=== PATIENT | male | born 1945 | race Caucasian/White ===

== ENCOUNTER → 2020-01-28 | Outpatient (CLI) | payer OTHER ==
[~2020-01-28] VITALS: Ht 182.9 cm; Wt 77.1 kg
[~2020-01-28] MED LIST: AMBIEN 10 MG TA10 MG PO; LIPITOR10 MG PO; LOSARTAN-HCTZ1 EAC2 PO; NORVASC5 M1 PO
[2020-01-28 09:37] VITALS: BP 178/98
--- NOTE | 2020-01-28 09:57 | NUR ---
Pain Clinic Assessment: 1. History of Osteoarthritis: BACK History of Rheumatoid Arthritis: Not Applicable 2. Height: 6 ft. 0 in. 182.9 cm. Weight: 170.0 lb. oz. 77.112 kg. Patient's BMI: 23.1 3. Vital Signs: BP: 178/98 Pulse: 72 Resp: 14 Temp: 02 Sat: 100 ECG Mon: 4. Pain Intensity: 8 5. Fall Risk: Dizziness: N Needs help standing or walking: N Fallen in the last 3 months: N Fall risk comments: 6. Patient on Blood Thinner: None 7. History of Hypertension: Y 8. Opioid Therapy greater than 6 weeks: N Opiate Contract Signed: 9. Risk Assessment Tool Provided: LOW RISK 0/3 10. Functional Assessment Tool: 56/70 11. Recreational Drug Use: Never Drug Type: Tobacco Use: Never Smoker Tobacco Type: Amount or Packs/day: How Many Years: Alcohol Use: Yes Frequency: Weekly Quant: 3 BEERS
--- NOTE | 2020-02-17 15:38 | HPC ---
[facility] [address] [address] PAIN MANAGEMENT CONSULTATION Name: MAGO FRANCES Room #: REG [facility].#: [id number] Admission: 01/28/20 Attend Phys: Gunner Gonzalez MD Discharge: Date of : 47 Report #: [id number] THIS REPORT FOR: cc: Abelardo Sparks,Gunner Real MD ~ CC: Abelardo Gonzalez DATE OF SERVICE: 01/28/2020 CHIEF COMPLAINT: Low back and leg pain. HISTORY OF PRESENT ILLNESS: The patient is a 75-year-old gentleman who has been experiencing pain in his low back on the right side. It radiates down into his buttocks and involves his right hip. This has been problematic since early December. He describes it as a constant, stabbing pain. It is exacerbated when he is walking and improves when he sits down. He rates the intensity of the discomfort as an 8/10. He notes that the pain sometimes runs down into the right anterior gr area as well. Denies any bowel or bladder dysfunction. He has tried Medrol Dosepak as well as muscle relaxants. He has used hydrocodone. He has tried heat. The patient was walking in [place]. He feels that he may have over extended himself. He has had difficulty doing activities around the house such as mowing lawns, trimming shrubs, and work in his garage. He feels that the pain sometimes almost "hold him over." ALLERGIES: No known drug allergies. MEDICATIONS: 1. Losartan/hydrochlorothiazide 100/12.5 2. Amlodipine 5 mg 3. Lipitor 10 mg 4. ____ p.r.n. PAST MEDICAL HISTORY: 1. Essential hypertension. 2. Mixed hyperlipidemia. 3. Gouty arthritis. 4. Erectile dysfunction. 5. Arthritic knees. 6. Migraine headaches. 7. Malaria in 1967. 8. Squamous cell carcinoma, right angle of the jaw. 9. History of prostate cancer. [facility] [address] [place] [address] PAIN MANAGEMENT CONSULTATION Name: ALYSAMAGO BAY Room #: REG [facility].#: [id number] Admission: 01/28/20 Attend Phys: Gunner Gonzalez MD Discharge: Date of : 46 Report #: [id number] 10. Basal cell cancer. 11. Idiopathic peripheral neuropathy. 12. Urinary urgency. 13. Cervical degenerative disk disease. 14. Hyperkalemia. 15. GERD without esophagitis. 16. Urinary incontinence. 17. Acute right-sided low back pain. PAST SURGICAL HISTORY: 1. Appendectomy in 1984. 2. Vasectomy. 3. Mediastinoscopy 4. Radical prostatectomy in 2014. SOCIAL HISTORY: He is retired, has not worked for the last 10 years. REVIEW OF SYSTEMS: Generally good health, wears glasses, hearing loss, decreased appetite, weight change, insomnia. PAIN CLINIC ASSESSMENT AND PQRS: 1. History of osteoarthritis. The patient has some osteoarthritic complaints in his back. He is not being treated for rheumatoid arthritis. 2. Height 6 feet 0, weight 170 pounds, BMI is 23.1. 3. Vital signs: Blood pressure 178/98, pulse 72, respiratory rate 14, saturation is 100%. 4. Pain intensity: 8/10. 5. Fall history: The patient has not fallen in the last 3 months. 6. Blood thinner: The patient is not on a blood thinning medication. 7. Opioids greater than 6 weeks: The patient is not receiving opioid on a regular basis. 8. Risk assessment tool: Low. 9. Functional assessment tool: 56/ 10. Recreational drug use: The patient denies. 11. Tobacco: The patient has smoked in the past. 12. Alcohol: The patient drinks about 3 beers. PHYSICAL EXAMINATION: GENERAL: The patient is a well-developed, well-nourished, white male. Appears his stated age. He is alert and oriented x 3. His affect is appropriate. Speech is fluent. HEENT: Normocephalic, atraumatic. Extraocular eye muscles intact. Sclerae nonicteric. Mucous membranes are moist. NECK: Without adenopathy or JVD. EXTREMITIES: Upper extremity muscle strength is judged to be 5-/5 for the major muscle groups in the upper extremity. [address] [address] PAIN MANAGEMENT CONSULTATION Name: MAGO FRANCES Room #: REG [facility]#: [id number] Admission: 01/28/20 Attend Phys: Gunner Gonzalez MD Discharge: Date of : 47 Report #: [id number] HEART: Regular rate. LUNGS: Clear to auscultation. ABDOMEN: Nontender. MUSCULOSKELETAL: Without significant scoliosis, kyphosis or lordosis. The patient does have some pain and discomfort in the lower portion of his back. Near the posterior superior iliac spine area, palpation in this area can and has revealed a trigger point. Anterior and posterior spring tests are negative. Gaetano sign is negative. The patient is not having pain radiating down into his dermatomal distribution. IMPRESSION: 1. Myofascial pain in the low back area on the right near the posterior iliac spine and gluteus mazin. 2. Essential hypertension. 3. Mixed hyperlipidemia. 4. Gouty arthritis. 5. Erectile dysfunction. 6. Arthritic knees. 7. Migraine headaches. 8. Malaria in 1968. 9. Squamous cell carcinoma, right angle of the jaw. 10. History of prostate cancer. 11. Basal cell cancer. 12. Idiopathic peripheral neuropathy. 13. Urinary urgency. 14. Cervical degenerative disk disease. 15. Hyperkalemia. 16. GERD without esophagitis. 17. Urinary incontinence. 18. Acute right-sided low back pain. RECOMMENDATIONS: We discussed the treatment options with the patient and his . Risks and benefits of a trigger point injection were discussed. Pathophysiology of trigger points was discussed. We explained that steroid injections can be helpful, the use of steroids can decrease one's immune response. The patient is aware that COVID-19 is pandemic. He elects to proceed. We will proceed with a trigger point injection. The risks and benefits of a trigger point were discussed. They could include but are include but are not limited to infection, worsening of pain, no improvement in pain, nerve damage, bleeding, and the patient elects to proceed. PROCEDURE NOTE: The patient was placed in the appropriate position. He sat perpendicular to the bed. A chair was placed under his feet for support. The patient leaned forward as though he were going to tie his shoes. Palpation in the right posterior superior area did reproduce the patient's pain and discomfort. This area was then sterilely prepped with chlorhexidine solution [address] [address] PAIN MANAGEMENT CONSULTATION Name: MAGO FRANCES Room #: REG [facility]#: [id number] Admission: 01/28/20 Attend Phys: Gunner Gonzalez MD Discharge: Date of : 47 Report #: [id number] and allowed to dry. A 25-gauge needle was then advanced into the area of discomfort. The patient states that this indeed reproduced his discomfort. There was no radicular pain. A total of 10 mL of 0.5% bupivacaine and 80 mg Depo-Medrol was injected. The patient's pain decreased from 8-1 at the time of discharge. He will follow up in the future as needed. We would like to thank you for letting us participate in his care. We hope he continues to improve. <ELECTRONICALLY SIGNED> By: Gunner Gonzalez MD 02/17/20 1538 1317 2330 Gunner Gonzalez MD /nt
== END | disposition home or self-care (01) ==
LOC: PAIN 06:54
PROVIDERS: ATTEND Anesthesiology Pain Medicine
DX: M79.18 Myalgia, other site (principal); I10 Essential (primary) hypertension; E78.2 Mixed hyperlipidemia; M10.9 Gout, unspecified; G43.909 Migraine, unspecified, not intractable, without status migrainosus; K21.9 Gastro-esophageal reflux disease without esophagitis; M17.0 Bilateral primary osteoarthritis of knee; Z85.46 Personal history of malignant neoplasm of prostate; Z85.828 Personal history of other malignant neoplasm of skin; Z98.890 Other specified postprocedural states; Z79.899 Other long term (current) drug therapy; Z90.49 Acquired absence of other specified parts of digestive tract; Z98.52 Vasectomy status

== ENCOUNTER 2020-12-21 13:37 | Observation (INO) | payer OTHER ==
[~2020-12-21] VITALS: Ht 180.3 cm; Wt 65.3 kg
[2020-12-21 13:37] VITALS: BP 107/89
[2020-12-21] MEDS ORDERED: NORVASC10 MG PO (14:20)
[2020-12-21] MEDS ORDERED: ZOLOFT25 MG PO (14:21)
[2020-12-21 14:37] LABS: ABSOLUTE NEUTROPHILS 6.6 thou/uL (1.4-8.2); BASOPHILS 0.5 % (0.0-2.0); EOSINOPHILS 0.2 % (0.0-3.0); HEMATOCRIT 41.4 % (42.0-52.0); HEMOGLOBIN 14.6 gm/dL (14.0-18.0); LYMPHOCYTES 6.6 % (24.0-44.0); MCHC 35.3 g/dL (28.0-37.0); MCV 90.8 fL (80.0-100.0); MONOCYTES 8.1 % (1.0-8.0); PLATELET COUNT 244 thou/uL (150-400); POLYS 84.6 % (36.0-66.0); RBC 4.57 mil/uL (4.50-6.00); RDW 13.4 % (10.5-14.5); WBC 7.8 thou/uL (4.0-11.0)
[2020-12-21 14:41] LABS: ANION GAP 9 mmol/L (7-16); BUN 22 mg/dL (7-18); CALCIUM 9.2 mg/dL (8.5-10.1); CHLORIDE 96 mmol/L (98-107); CO2 28 mmol/L (21-32); CREATININE 1.1 mg/dL (0.7-1.3); GLUCOSE 121 mg/dL (74-106); POTASSIUM 3.6 mmol/L (3.5-5.1); SODIUM 133 mmol/L (136-145)
[2020-12-21 14:51] LABS: ALBUMIN 3.7 g/dL (3.4-5.0); SGOT 20 U/L (15-37); SGPT 27 U/L (16-63); TOTAL PROTEIN 6.8 g/dL (6.4-8.2); TROPONIN-I <0.06 ng/mL (<0.06)
[2020-12-21 15:06] LABS: URINE BILIRUBIN NEGATIVE (Negative); URINE BLOOD NEGATIVE (Negative); URINE CLARITY CLEAR; URINE COLOR YELLOW; URINE GLUCOSE-RANDOM* NEGATIVE (Negative); URINE KETONES NEGATIVE (Negative); URINE LEUKOCYTES-REFLEX NEGATIVE (Negative); URINE NITRITE-REFLEX NEGATIVE (Negative); URINE PROTEIN (DIPSTICK) NEGATIVE (Negative); URINE SPECIFIC GRAVITY 1.025 (1.005-1.035)
--- NOTE | 2020-12-21 15:07 | EKG ---
[place] [address] [facility] [place] [address] ELECTROCARDIOGRAM REPORT Name: MAGO FRANCES Room #: REG [facility]#: [id number] Admission: 12/21/20 Attend Phys: Discharge: Date of : 46 Report #: [id number] [facility] ED Test Date: 2020-12-21 Test Time: 14:02:34 Pat Name: MAGO FRANCES Department: Room: Gender: M Crtts: : 1945 Requested By: Ruby Walker Order Number: [id number] MD: Gaetano Sparrow Measurements Intervals Arco Rate: 79 P: -7 ME: 113 QRS: 46 QRSD: 81 T: 49 QT: 356 QTc: 409 Interpretive Statements Sinus rhythm Borderline short ME interval Baseline wander in lead(s) I,aVR No previous ECG available for comparison Electronically Signed On 12-21-2020 15:07:19 CDT by Gaetano Sparrow [email or web address] <ELECTRONICALLY SIGNED> By: Gaetano Sparrow MD, [facility] 12/21/20 1507 1402 1402 Gaetano Sparrow MD, FACC /EPI
[2020-12-21 16:08] VITALS: BP 107/89
[2020-12-21 16:21] VITALS: BP 169/97
[2020-12-21 17:23] VITALS: BP 156/99
--- NOTE | 2020-12-21 17:41 | NUR ---
ADMISSION NOTE: PT ARRIVED APPROX 1630. PT HAS SMALL BLUE BAG OF PERSONAL TOILETRIES, THIS RN PLACED IN FLORIST HELPER. PT HAS FLAT AFFECT, ANSWERS QUESTIONS IN SHORT SENTENCES, MAKES MULTIPLE STATEMENTS OF "I SHOULD NOT BE IN THE HOSPITAL" PT BOTH DENIES SI AND VERIFIES SI, BUT STATES "I COULD NOT DO THAT TO MY AND SON" PT STATES ALL OF HIS CURRENT DEPRESSION COMES FROM HIS DAUGHTER AND "SOMETHING THAT HAPPENED 20 YEARS AGO" PT HAS LOST 26LBS IN PAST MONTH. USED TO DRINK DAILY, BUT "HAS LOST THE TASTE" 1:1 SITTER IN ROOM. LANDSCAPE SPECIALIST PLACED, SR. VITALS WNL, SKIN INTACT. PT DOES HAVE DIFFICULTY HOLDING URINE SINCE PROSTATECTOMY. DINNER TRAY BEING DELIVERED BY [employer].
[2020-12-22 06:40] VITALS: BP 158/89
--- NOTE | 2020-12-22 06:47 | NUR ---
PT REQUIRES 1:1 DUE TO SI. PT UP TO BATHROOM AD JACKSON AND IV POLE. IVF GTT. HOURLY ROUNDING.
[2020-12-22 07:09] VITALS: BP 154/92
--- NOTE | 2020-12-22 07:44 | NUR ---
ASSUMED PT CARE AT SHIFT CHANGE, 1:1 SITTER IN ROOM. NO COMPLAINTS OF PAIN OR DISCOMFORT. NO OTHER CONCERNS AT THIS TIME. PHYSICIANS ROUNDING.
--- NOTE | 2020-12-22 08:08 | H ---
[facility] [place] [address] [place] [address] HISTORY AND PHYSICAL Name: MAGO FRANCES Room #: 350-P [facility] M.R.#: [id number] Admission: 12/21/20 Attend Phys: Abelardo Sparks DO Discharge: Date of : 47 Report #: [id number] THIS REPORT FOR: cc: Abelardo Sparks,Abelardo Prasad DO ~ DOC #: [id number] Abelardo Sparks DO DATE OF SERVICE: 12/21/2020 ROOM: 350 HISTORY OF PRESENT ILLNESS: This 75-year-old white male was admitted through the emergency room with significant weight loss, anorexia, hallucinations, paranoia, confusion and anxiety. The patient's history began on 11/03/2020 when his daughter, under the influence of narcotics, accused him of having tried to have sex with her several years ago. He denied this, but the accusation made him extremely stressed out and he has been going downhill since then. He was hospitalized last month at [facility] with hyponatremia, following which losartan was discontinued. He was in the emergency room last week because of refusal to eat; however, lab studies were unremarkable and he was sent home. I was out of town at that time and not able to help coordinate his care. Today, his called me to tell me that he was hallucinating, being paranoid, thinking that they were going to accuse him being a terrorist and were about to arrest him, thinking they were going to charge him for owning firearms in his home, and somehow thinking he was going to hurt himself. This scared the and she brought him into my office where he was found to be drawn and had significant weight loss. The patient was not thinking clearly and was very paranoid and stating he felt guilty about what he had done to make his daughter make the accusations. He also admitted that years ago he shoplifted $50 item from [employer] for which they told him never to return; however, they have shopped there many times since then. PAST MEDICAL HISTORY: Prostate cancer, treated with radical prostatectomy; appendectomy; vasectomy; mediastinoscopy; hypertension; mixed hyperlipidemia; gout; arthritis of the knee; migraine headaches; malaria in 1967; squamous cell cancer at the right angle of his jaw; idiopathic peripheral neuropathy; cervical degenerative disk disease; GERD without esophagitis; urinary incontinence following his prostatectomy. MEDICATIONS ON ADMISSION: Lipitor 20 mg daily, zolpidem ER 12.5 mg nightly, [address] [address] HISTORY AND PHYSICAL Name: MAGO FRANCES Room #: 350-P [facility] M.R.#: [id number] Admission: 12/21/20 Attend Phys: Abelardo Sparks DO Discharge: Date of : 47 Report #: [id number] amlodipine 10 mg daily. ALLERGIES: None, but SERTRALINE 1 week ago made his condition worse, which has been discontinued. SYSTEMS REVIEW: Lives with his for many years. No cigarettes. He usually drinks 1 beer or 1 vodka nightly, but has lost his appetite for that. Usually he does all the yard work, but for the last month has been unwilling to do any. Denies chest pain, fever, chills, cough, dysphagia, falls, head trauma or melena. PHYSICAL EXAMINATION: GENERAL: Tanned ____ white male with flattened affect. VITAL SIGNS: Blood pressure 156/99, pulse 86, respirations 18, temperature afebrile. HEAD: No rash or trauma. EARS, NOSE AND THROAT: Mucosa is dry. EYES: No icterus. NECK: Supple, without bruits. No adenopathy. LUNGS: Clear. Cough is dry. HEART: Rhythm regular, without murmur. ABDOMEN: Soft, without masses, tenderness or organomegaly. EXTREMITIES: No edema, cyanosis or rash or sign of trauma. NEUROLOGIC: He does not make good eye contact. His affect is very flat. His mood is depressed. His word content is accurate; however, he mutters that this all his fault that he is guilty and should be punished. He currently denies any suicidal ideation. IMAGING AND LABORATORY DATA: CAT scan of the abdomen and chest showed small pulmonary nodules. Chest x-ray is negative. CAT scan of the head shows no acute abnormality. White count 7800, hemoglobin 14.6, MCV 90.8. Serum alcohol less than 10. Salicylate and acetaminophen are negative. Sodium 133, potassium 3.6, CO2 of 18, BUN 22, creatinine 1.1, estimated GFR 65, glucose 121, calcium 9.2. Liver enzymes normal. Albumin normal at 3.7. IMPRESSION: 1. Weight loss and anorexia. 2. Hallucinations and paranoia. 3. Possible posttraumatic stress disorder. 4. Rule out dementia versus pseudodementia from depression. 5. History of prostate cancer. 6. Hypertension. 7. History of hyperlipidemia. 8. Cervical degenerative arthritis. [facility] [address] [place] [address] HISTORY AND PHYSICAL Name: MAGO FRANCES Room #: 350-P [facility] Afshan Avalos#: [id number] Admission: 12/21/20 Attend Phys: Abelardo Sparks DO Discharge: Date of : 47 Report #: [id number] PLAN: IV fluids and hydration, consult Psychiatry, a 1:1 sitter ____ the patient definitely will not try to hurt himself. Prognosis is guarded. Abelardo Sparks DO DC/DAVID/MARIAA <ELECTRONICALLY SIGNED> By: Abelardo Sparks DO 12/22/20 0808 1632 1754 Abelardo Sparks DO /nt
[2020-12-22] MEDS ORDERED: B-12500 MCG PO (08:10)
[2020-12-22 09:04] VITALS: BP 154/92
--- NOTE | 2020-12-22 14:24 | NUR ---
THIS RN REC'D PHONE CALL FROM DR CANALES, IS OK TO DC PT TO [facility], COVID TEST NEGATIVE. REPORT GIVEN TO FLOOR RN WITH COORDINATED TIME TO TRANSFER.
--- NOTE | 2020-12-24 07:20 | D ---
[facility] [place] [address] [place] [address] DISCHARGE SUMMARY Name: MAGO FRANCES Room #: 350-P [facility] Afshan Avalos#: [id number] Admission: 12/21/20 Attend Phys: Abelardo Sparks DO Discharge: 12/22/20 Date of : 47 Report #: [id number] THIS REPORT FOR: cc: Abelardo Sparks,Abelardo Prasad DO ~ DOC #: [id number] Abelardo Sparks DO DATE OF SERVICE: 12/22/2020 HISTORY: This 75-year-old white male was admitted with weight loss, anorexia, paranoia, hallucinations, feelings of guilt and anxiety. The patient had been progressively worsening since October when his daughter accused him of trying to have sex with her, which he adamantly denied; however, the daughter was addicted to drugs at that time and has had severe mental problems herself. His other history includes prostate cancer, hypertension, degenerative arthritis of his neck, radical prostatectomy for prostate cancer, appendectomy, vasectomy, mixed hyperlipidemia, malaria in 1967, arthritis of the knees, squamous cell cancer to the angle of his right jaw, GERD without esophagitis and urinary incontinence following his prostatectomy. HOSPITAL COURSE: Initial physical revealed a somewhat disheveled, drawn suntanned white male. The patient did have had COVID last winter. BP was high at 156/99. Other vitals were stable. Head and neck revealed dry mucosa. Lungs are clear. Cardiac exam negative. The abdomen is soft, nontender. Extremities had no cyanosis, clubbing, edema or signs of trauma. Neurologic: He was alert and oriented, but withdrawn and depressed. CAT scan of abdomen and pelvis was done for weight loss, showed small pulmonary nodules. Chest x-ray negative. CAT scan of the head negative. Drug screen was negative. The patient was admitted, seen in consult by Dr. Ramirez of Psychiatry. He received IV fluids. His affect remained flat and anxious. Dr. Ramirez thought he was an appropriate candidate for inpatient psychiatric care. CBC and CMP were unremarkable. B12 level was normal. On 12/21/2020, he was transferred to [facility] here on amlodipine 10 mg daily, Seroquel 25 mg b.i.d., and atorvastatin 20 mg daily. FINAL DIAGNOSES: 1. Anorexia and weight loss secondary to acute psychotic break with depression and posttraumatic stress disorder. 2. Hypertension. 3. Cervical degenerative arthritis. 4. Mixed hyperlipidemia. 5. History of prostate cancer. Abelardo Sparks DO DC/ASHOK/THIAGO [address] [address] DISCHARGE SUMMARY Name: MAGO FRANCES Room #: 350-P [facility] Afshan Avalos#: [id number] Admission: 12/21/20 Attend Phys: Abelardo Sparks DO Discharge: 12/22/20 Date of : 47 Report #: [id number] <ELECTRONICALLY SIGNED> By: Abelardo Sparks DO 12/24/20719 0643 Abelardo Sparks DO /nt
--- NOTE | 2020-12-24 22:33 | HC ---
[facility] [place] [address] CONSULTATION Name: MAGO FRANCES Room #: 350-P [facility] Afshan M.R.#: [id number] Admission: 12/21/20 Attend Phys: Abelardo Sparks DO Discharge: 12/22/20 Date of : 47 Report #: [id number] THIS REPORT FOR: cc: Abelardo Sparks Donald L. DO Kerstein, Andrew H. DO ~ DOC #: [id number] ROSS Ramirez, DATE OF SERVICE: 12/21/2020 PSYCHIATRY CL CONSULTATION Of note, I was called to the Emergency Room by Dr. Walker to see the patient of Dr. Abelardo Sparks, sent to the Emergency Room for evaluation and probable admission. While at the Emergency Room, Dr. Sparks was called and he did want to admit the patient medically. SOURCES OF INFORMATION: Conversation and notes of Dr. Sparks, discussion with Dr. Walker about the case, Emergency Room and hospital records, interview with the patient in ER bed 10, some brief collateral I got from his . CHIEF COMPLAINT: "It is over." HISTORY OF PRESENT ILLNESS: This is a 75-year-old male, referred to the Emergency Room at [facility] for initial evaluation today. The patient was reported to have suicidal ideation, did not flush out of him a fixed plan. He had very morbid, almost fatalistic thinking in the ER that it is all over. Collateral states that he has had significant weight loss over the last few months, hallucinations, probably auditory, been paranoid, confused and anxious. According to Dr. Sparks's note on 11/03/2020, things deteriorated when his daughter, under the influence of narcotics, accused him of having tried to have sex with her several years ago. The patient denied this, but was devastated by the accusation. Even though the patient told me it was last week, Dr. Sparks's note states that the patient was hospitalized last month at [facility] with hyponatremia. Losartan was attributed as a cause. Also, he was in the Emergency Room last week because of refusal to eat; however, lab studies were unremarkable and he was sent home. Apparently, Dr. Sparks was out of town last week when this ER visit occurred which limited his ability to "coordinate the patient's care." The patient's called Dr. Sparks to tell him that the patient was hallucinating, being paranoid, thinking that they were going to accuse him of being a terrorist and were about to arrest him, thinking they were going to charge him for owning firearms in his home. Dr. Sparks and Dr. Walker did state the patient does have firearms and ammunition in the home and the patient also made reference to hurt himself. This scared the and she brought him to Dr. Sparks's office where he was found to be quite depressed and even more weight loss than his last visit. The patient admitted [facility] [address] [place] [address] CONSULTATION Name: MAGO FRANCES Room #: 350-P DOLLY Avalos#: [id number] Admission: 12/21/20 Attend Phys: Abelardo Sparks DO Discharge: 12/22/20 Date of : 47 Report #: [id number] that years ago he shoplifted a $50 item from a store for which he was told never to return; however, the patient shopped there since then, not clear what store it was. PAST SURGICAL HISTORY: Includes prostate cancer treated with radical prostatectomy, appendectomy, vasectomy, mediastinoscopy. 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 HOME MEDICATIONS: Lipitor 20 mg p.o. daily, zolpidem ER 12.5 mg nightly, amlodipine 10 mg oral daily. ALLERGIES: None officially, HOWEVER, SERTRALINE WAS STARTED A WEEK AGO, THE HALLUCINATION CONCERNS AND THAT IS BEING CONSIDERED AN ALLERGY AT PRESENT. SMOKING HISTORY: No cigarettes. SUBSTANCE USE HISTORY: Usually drinks 1 beer and 1 vodka nightly. Has lost his appetite for that. No recreational drugs. SOCIAL HISTORY: Additional social history, usually does all his yard work, but for the last month has been unwilling to do any. REVIEW OF SYSTEMS: Denies chest pain, fever, chills, cough, dysphagia, falls, head trauma, or melena. Otherwise, brief review of systems was negative. DIAGNOSTIC DATA: In the Emergency Room today, a head CT was done, which showed no acute intracranial abnormalities. Normal appearance of white matter. No discrete masses or significant mass effect. No parenchymal, subarachnoid, or subdural hemorrhages. This was read by Dr. Hernandez. Additional information from the ER, chest x-ray was done, which showed no acute cardiopulmonary process that was detected. Normal heart size. Also, interestingly, there was an abdominal pelvis CT done, which showed tiny noncalcified pulmonary nodules in the right lower lobe. Further evaluation with CT chest can be obtained. Hypodense hepatic lesions, likely cysts, rectal impaction with stool. This was read by Dr. Patel. LABORATORY DATA: Laboratories from the ER are as follows: White count 7.8, H and H 14.6 and 41.4, platelet count 244, segmented neutrophil percentage high at 84.6, lymphocyte percentage low at 6.6, monocyte percentage high at 8.1. Chemistries: Sodium 133, potassium 3.6, chloride 96, bicarbonate 28, anion gap [facility] [address] [place] [address] CONSULTATION Name: MAGO FRANCES Room #: 350-P [facility] Afshan [facility].#: [id number] Admission: 12/21/20 Attend Phys: Abelardo Sparks, Discharge: 12/22/20 Date of : 47 Report #: [id number], BUN 22, creatinine 1.1, estimated GFR 65, glucose 121, calcium 9.2, total bilirubin 1.0, AST 20, ALT 27, alkaline phosphatase 67. Troponin less than 0.06, total protein 6.8, albumin 3.7. Urinalysis was negative. Salicylate less than 2.8, acetaminophen less than 2. Serum alcohol less than 10. Of note, if the patient is later considered for admission to the [facility], COVID-19 Guerra test PCR would be required. PHYSICAL EXAMINATION: VITAL SIGNS: Vital signs today taken at 1723 hours today, temperature 36.9, pulse 86, respirations 18, BP 156/99 in left arm. O2 sat 94% on room air. GENERAL: Unkempt male, wearing hospital gown, seated in [facility]. MENTAL STATUS EXAMINATION: This is a well-developed, thin, ill-appearing male, BMI 20.1, weight 65.318 kg, height 180.3 cm. Attention fair. Concentration limited. Speech relatively normal rate, but intermittent. Diminished fluctuations, inflections of his voice. Thought process: Linear, focused. Thought content: "I am done, what's the point" those kinds of comments. The patient denied active SI, but had morbid comments. Denied HI. Denied hallucinations when I saw him including auditory, visual, tactile. Memory not formally tested. Insight limited. Judgment impaired. Fund of knowledge: No greater than average. FORMULATION: A 75-year-old male referred by Dr. Sparks for internal medicine admission at this time due to weight loss. Reports of possible SI, hallucinations. DIAGNOSES: At this time, unspecified depression, rule out major depressive disorder with psychotic features, cannot exclude a major neurocognitive disorder at this early juncture. RECOMMENDATIONS: In addition to laboratories already obtained, I would recommend B12 be obtained, vitamin D be obtained. If there is more concern about dementia, then syphilis antibody as well. In addition to these things, the patient's current medications in the hospital prescribed by Dr. Sparks are as follows: Atorvastatin 20 mg p.o. at bedtime, D5 with 1/2 normal saline 1000 mL q. 8 hours, Norvasc 10 mg p.o. daily, zolpidem tartrate 10 mg p.o. daily. Given the potential for zolpidem to cause dissociation, aberrant behavior, occasionally psychosis, I would recommend this be considered for discontinuation. I plan to speak with Dr. Sparks about that. In addition, probably the most expedient thing to do with his symptomatology is to start a low-dose antipsychotic, such as scheduled Seroquel 25 mg oral 3 times a day. I did not get an adequate visit with the patient's family, so tomorrow morning I would like to speak more extensively with the as well as the patient and see if there is any improvement from the efforts Dr. Sparks has initiated. He is a full code. It is unclear if he has a durable power of contract attorney for [address] [address] CONSULTATION Name: MAGO FRANCES [id number] Admission: 12/21/20 Attend Phys: Abelardo Sparks DO Discharge: 12/22/20 Date of : 47 Report #: [id number] healthcare, general financial matters at this point. Time spent on this case is about 45 minutes. Thank you for allowing me to participate in this patient's case. I will follow along with you. DO LAURA Santos/ISAAK/TAJ <ELECTRONICALLY SIGNED> By: Ross Ramirez DO 12/24/20 2233 2044 0025 Ross Ramirez DO /nt
== END 2020-12-22 15:36 ==
LOC: ER 13:37 → EROBS 16:21 → 3W 16:22
PROVIDERS: Emergency Medicine; ADMIT Internal Medicine; ATTEND Internal Medicine
DX: F43.10 Post-traumatic stress disorder, unspecified (principal); Z20.822 Contact with and (suspected) exposure to COVID-19; R63.4 Abnormal weight loss; F29 Unspecified psychosis not due to a substance or known physiological condition; F32.9 Major depressive disorder, single episode, unspecified; E86.0 Dehydration; E87.1 Hypo-osmolality and hyponatremia; K21.9 Gastro-esophageal reflux disease without esophagitis; G43.909 Migraine, unspecified, not intractable, without status migrainosus; R44.3 Hallucinations, unspecified; F22 Delusional disorders; I10 Essential (primary) hypertension; E78.5 Hyperlipidemia, unspecified; M50.30 Other cervical disc degeneration, unspecified cervical region; Z79.899 Other long term (current) drug therapy; Z85.46 Personal history of malignant neoplasm of prostate

== ENCOUNTER 2020-12-22 14:49 | Inpatient (IN) | payer OTHER ==
[~2020-12-22] VITALS: Ht 180.3 cm; Wt 65.6 kg
[~2020-12-22 14:49] MED LIST changes: +B-12500 MCG PO; +NORVASC10 MG PO; +ZOLOFT25 MG PO
[2020-12-22 15:36] VITALS: BP 157/94
--- NOTE | 2020-12-22 18:13 | NUR ---
Pt arrived unit at 1535 via w/c. Diagnosed with failure to thrive. Pt came from [facility]. pt is alert and oriented x4. Assessments completed, vss. s1 S2 regular. denies si/hi, denies pain at this time. well groomed. poor appetite. Lungs sound clear on auscultation, active bowel sound. No wounds noted on pt skin, NO edema noted. Calm and cooperative with assessments. AMbulates with a steady gait. Consent form signed by SAM. Dinner was ordered with ensure supplement. DPOA () AND SON VISISTED AT 1600 TO 1700. WELCOME PACKET HANDED TO PT. Fall contract signed. Fall education was done with pt and family. At this time pt is in the day room resting. DR López saw pt. pt insisted on wearing his wrist watch and ring. pt is wearing his eye glass. Dr Ramirez notified. WIll continue to monitor pt.
[2020-12-22 20:06] VITALS: BP 125/83
--- NOTE | 2020-12-23 00:05 | NUR ---
ASSESSMENT: PT REMAIN ALERT AND ORIENT TIMES FOUR. PLEASANT AND COOPERATIVE WITH POC. WAS WATCHING TELEVISION WITH THE OTHER PT'S CALMLY. DENIES SOB, PAIN AND N/V. TOOK MEDS WITHOUT ISSUE. WILL CONTINUE TO MONITOR.
[2020-12-23 05:57] LABS: CHOLESTEROL 123 mg/dL (<200); HDL CHOLESTEROL 67 mg/dL (>40); LDL CHOLESTEROL 46 mg/dL (<100); TC:HDL 1.8 Ratio (Not establshd); TRIGLYCERIDE 53 mg/dL (<150); VLDL 11 mg/dL (<40)
[2020-12-23 06:19] LABS: SERUM ASSESSMENT Clear
[2020-12-23 08:56] VITALS: BP 159/98
[2020-12-23 09:47] VITALS: BP 159/98
--- NOTE | 2020-12-23 10:29 | NUR ---
1029 RESUMMED CARE FROM OVERNIGHT SHIFT THIS AM, PATIENT IN DAY ROOM SITTING IN DAY ROOM QUIET. PATIENT ATE BREAKFAST TOOK MEDICATION WITHOUT INCIDENCE. PATIENT DENIES SI/HI/AH/VH AT PRESENT PATIENT ALERT ORIENTED TIMES 4. PATIENTS ABDOMNEN SOFT BOWEL SOUNDS PRESENT, PATIENTS LUNGS CLEAR. PATIENT CALM QUIET DID PARTICIPATE IN GROUPS. WILL CONTINUE TO MONITOR FOR SAFETY AND BEHAVIORS.
--- NOTE | 2020-12-23 10:37 | NUR ---
New admit to [facility]. Pt noted with previous admission January of last year and is showing ~25# wt loss since that time. Decrease in appetite r/t increase in psychosis. Intake since this admit <24hrs, 75% documented. Noted with Ensure ordered on last admission will order Ensure Enlive with all meals d/t hx weight loss and reported decreased in appetite. Low nutrition risk at this time with follow up for 12/27/20 for acceptance of supplement.
--- NOTE | 2020-12-23 18:04 | NUR ---
TABBY and Dr. Post met with the Pt. Pt's , Shiela, was able to be apart of the meeting by phone. Pt seemed very anxious during the meeting. Pt was able to complete the assessment. Pt is hard of hearing and seemed very anxious during the meeting, fiddling with his pants and his fingers. Pt denied SI/HI. Pt denied AH/VH. Pt stated he hada HX of PTSD and was exposed to agent [place] in [place]. Pt has lost 26lbs in the last 2-3 months. Pt reported poor sleep. Pt denied recieving any recent otpt psychiatric or theraputic services. A family meeting was set for 12/27/2020 @1100. TABBY will continue to follow
[2020-12-23 19:51] VITALS: BP 119/78
[2020-12-23 21:59] VITALS: BP 144/66
--- NOTE | 2020-12-23 22:11 | NUR ---
0 RESUMMED CARE FROM DAY SHIFT THIS PM, PATIENT SITTING IN DAY ROOM QUIET. PATIENT DENIES SI/HI/AH/VH AT PRESENT PATIENT HAD VISIT FROM FAMILY THE VISIT WENT WELL. PATIENTS ABDOMEN SOFT BOWEL SOUNDS PRESENT PATIENTS LUNGS CLEAR. PATIENT CALM COOPERATIVE ALERT ORIENTED TIMES 4. WILL CONTINUE TO MONITOR PATIENT FOR SAFETY AND BEHAVIORS.
[2020-12-24 09:03] VITALS: BP 140/84
--- NOTE | 2020-12-24 16:57 | NUR ---
PATIENT CARE ASSUMED AT 0700 - REFUSED BREAFAST - WITHDRAWN THIS MORNING. CAME OUT FOR LUNCH. COMPLIANT WITH MEDICATIONS. WAS HESITANT TO TAKE THREE PM SCHEDULED MEDICATIONS - SEROQUEL WHICH WAS BUMPED UP TO 75 MG. PATIENT HAS BEEN OUT ON FLOOR THIS AFTERNOON BUT QUIET AND WITHDRAWN. PATIENT REQUESTED ENSURE TID BE ADDED TO MEALS.
[2020-12-24 19:27] VITALS: BP 144/93
--- NOTE | 2020-12-24 22:46 | H ---
[facility] [place] [address] HISTORY AND PHYSICAL Name: MAGO FRANCES Room #: 519A-A ADM IN M.R.#: [id number] Admission: 12/22/20 Attend Phys: Ross Ramirez DO Discharge: Date of : 47 Report #: [id number] THIS REPORT FOR: cc: Abelardo Sparks,Abelardo Avila,Ross Hi DO ~ DOC #: [id number] ROSS Ramirez DO DATE OF SERVICE: 12/22/2020 ATTENDING PSYCHIATRIST: Ross Ramirez DO ANNEALING OVEN OPERATOR: Abelardo Sparks DO. REASON FOR ADMISSION: Psychosis, severe depression. SOURCES OF INFORMATION: Interview with the patient, discussion and notes of jesika Schwartz discussion with the patient and family members during his brief general medical hospitalization. Sources of information as described. CHIEF COMPLAINT: "I'm crazy." HISTORY OF PRESENT ILLNESS: This is a 75-year-old male initially medically admitted yesterday due to concerns of dehydration. The patient was referred to me by Dr. Abelardo Sparks, general expeditor. The concerns include 3-month history of weight loss, increased depression, increased paranoia in my consult yesterday. This was described in detail. Things deteriorated on 11/03/2020 when he got a call from his daughter. She has a drug addiction. She accused him once again trying to have sex with her several years ago. When I re-addressed that issue today, he states that 20 years ago when she was 36, he gave her a massage and this experience she had in our discussion as an emotional diagram. He does not know if the daughter is alive and well now. Apparently when this phone call has been made, she was suicidal. The patient was seen in the last month at [facility] for hyponatremia. He was seen in the Emergency Room last week due to refusal to eat. The patient had voiced to his thinking people were going to call him a terrorist. The patient does have firearms in his home. PAST SURGICAL HISTORY: Includes a radical prostatectomy, history of prostate cancer, appendectomy, diskectomy, mediastinoscopy. MEDICAL PROBLEMS: Include hypertension, mixed hyperlipidemia, gout, arthritis of the knee, migraine headache, malaria in [birth year], squamous cell cancer of the right angle of the jaw, idiopathic peripheral neuropathy, cervical degenerative disk disease, GERD without esophagitis. [address] [address] HISTORY AND PHYSICAL Name: MAGO FRANCES Room #: 519A-A [facility] IN [facility]#: [id number] Admission: 12/22/20 Attend Phys: Ross Ramirez DO Discharge: Date of : 47 Report #: [id number] HISTORY: Combat [employer] [place] in 1967. The patient does have honorable discharge. He does have VA benefits. I did not get his entire length of service. He obtained a Bachelor's of Arts degree from [employer] in business, part of a master's degree as well, was [employer] retiring 10 years ago. Interests include he and his like to talk a lot. In 1960s, he was for the first time, had a son. He is estranged from his son, lives in [place], his son Sancho. He also told with his second he has been for 51 years and they have Sancho and a daughter. The patient's heritage is [place]. The mental health problems in the bloodline is the daughter with the drug addiction. The patient denies history of physical, sexual, emotional abuse. Denies history of smoking, alcohol or recreational drugs. Denies history of medical problems in the family. No cancers, strokes, multiple sclerosis, heart disease. I did not ask the cause of of his parents. HOME MEDICATIONS: Lipitor 20 mg daily, amlodipine 10 mg daily. He was given zolpidem, which has been discontinued in the last week or so. Dr. Sparks had prescribed sertraline. He has increased depression and alleged hallucinations. I elected to defer doing [facility] Mental Status Examination, he is meeting 5/7 criteria for major depression. VITAL SIGNS: Today, temperature 36.2, pulse 90, respirations 14, BP 157/94, O2 sat 95%. LABORATORY DATA: Received today. Of interest, free T4 high at 1.5. TSH normal 0.966. Vitamin D was borderline low at 32.9. Vitamin B12 471. I will consider borderline low. Rest of his electrolytes were normal except glucose 121. This is nonfasting. BUN 22, chloride 96. Sodium slightly low at 133. Hematology grossly normal. Urinalysis negative. Toxicology negative for alcohol, acetaminophen and salicylates urine drug screen was not performed. COVID-19 test is negative. At this point, I would not do a drug screen that he has been hospitalized too long and I think he is low risk for illicit substance abuse. MEDICATIONS: In the hospital. Vitamin D3 5000 international units daily, which was started today, amlodipine 10 mg oral daily continued with medical hospitalization. Vitamin B12 1000 mcg oral daily that was started yesterday. Seroquel, I started him on 25 mg oral 3 times a day scheduled with 50 mg q.6h p.r.n. for sleep, anxiety or agitation. Atorvastatin 20 mg oral daily for hyperlipidemia. Otherwise, house PRNs. ALLERGIES: No known allergies. [facility] [address] [place] [address] HISTORY AND PHYSICAL Name: MAGO FRANCES Room #: 519A-A ADM IN ..#: [id number] Admission: 12/22/20 Attend Phys: Ross Ramirez DO Discharge: Date of : 47 Report #: [id number] He is a full code. He does have a power of trademark attorney. It is his . It has not been active. BMI 20. Weight 65.136 kilos, height 180.34 cm. PHYSICAL EXAMINATION: GENERAL: Well-developed, thin, wearing glasses, in hospital gown. MENTAL STATUS EXAMINATION: This is a well-developed male appearing stated age. Attention fair. Concentration fair. Speech normal rate, rhythm and tone. Thought process: Linear and goal directed. Thought content: Focused on the present. No psychomotor agitation, no psychomotor retardation, possibly some thought blocking at times. Thought content relative poverty. Denied suicidal intent or plan. Some helplessness, hopelessness. Denied homicidal intent or plan. Denied auditory, visual, or tactile hallucinations. Memory not formally tested. We will do that in the next day or two. Insight and judgment limited. Fund of knowledge above average. FORMULATION: A 75-year-old male admitted to the [facility] Unit at [facility]. DIAGNOSES: At this time, Major Depressive disorder, single episode, severe degree, with psychotic features. 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 Medical comorbidities include hypertension, hyperlipidemia, history of prostate cancer, status post radical prostatectomy. PLAN: Admit to geriatric psychiatry. Evaluate, stabilize, obtain collateral. Dr. Sparks consulted for medical management. With regards to patient's psych meds, I would like to keep Ambien out of the picture. Start him on Seroquel with his recent bad reaction to a low dose of SSRI. I will defer initiating that at this point, I would actually consider Remeron if Seroquel therapy goes well, the first couple days. ESTIMATED LENGTH OF STAY: 7 to 14 days. STRENGTHS: Supportive family. WEAKNESSES: Number of stressors including combat experience. Time spent on this case, more than 45 minutes. ROSS Ramirez DO [facility]/DONNY/TOMAS [place] [id number] HISTORY AND PHYSICAL Name: MAGO FRANCES Room #: 519A-A [facility] IN [facility].#: [id number] Admission: 12/22/20 Attend Phys: Ross Ramirez DO Discharge: Date of : 47 Report #: [id number] <ELECTRONICALLY SIGNED> By: Ross Ramirez DO 12/24/20 2246 [id number] Ross Ramirez, /nt
[2020-12-25 00:21] VITALS: BP 144/93
--- NOTE | 2020-12-25 00:29 | NUR ---
Pt is alert/oriented, affect pleasant, talking and interacting with peers in the day room. Pt decided he did not want to take his seroquel but did agree to take his other medication. Took medication whole with water. Pt voiced the seroquel makes me too sleepy. Denies SI/HI/AH/VH. will continue to monitor throughout shift.
--- NOTE | 2020-12-25 07:19 | HC ---
[facility] [place] [address] CONSULTATION Name: MAGO FRANCES Room #: 519A-A [facility] IN ..#: [id number] Admission: 12/22/20 Attend Phys: Coleman Ramirez DO Discharge: Date of : 47 Report #: [id number] THIS REPORT FOR: cc: Abelardo Sparks Donald L. DO Cohen, Donald L. DO ~ DATE OF SERVICE: 12/17/2020 ____: Coleman Ramirez DO HISTORY OF PRESENT ILLNESS: This 75-year-old white male seen on the geriatric psychiatric unit where he was admitted because of severe mental aberration onset when he was falsely accused by his daughter of sexual impropriety several months ago. He has become extremely distraught, lost his appetite and lost weight. He has been confused, extremely guilt-ridden and paranoid. I had started him on sertraline 2 weeks ago, but it seemed to make his symptoms worse, so we discontinued it. He was hospitalized last month at [facility] with hyponatremia, believed to be a complication of losartan, which has been stopped. PAST MEDICAL HISTORY: Cervical degenerative arthritis, prostate cancer treated with radical prostatectomy, hypertension, mixed hyperlipidemia, malaria in 1967, GERD without esophagitis, squamous cell cancer at the angle of the right jaw. CURRENT MEDICATIONS: Seroquel 50 mg t.i.d., amlodipine 10 mg daily, vitamin D 5000 units daily, vitamin B12 1000 mcg daily, atorvastatin 20 mg daily. ALLERGIES: None. REVIEW OF SYSTEMS: No cigarette use. He does drink moderately, but has lost his appetite for alcohol as well. No fever, chills, chest pain, dyspnea, vomiting, diarrhea or dysuria. PHYSICAL EXAMINATION: GENERAL: Sleepy white male currently. VITAL SIGNS: BP 140/66, pulse 69, respiration 18, temperature 36.9. HEAD: No rash or trauma. SKIN: Sun tanned without significant lesions. EARS, NOSE, THROAT: Negative. EYES: No icterus. NECK: Supple, without bruits. LUNGS: Clear. HEART: Rhythm regular without murmur or gallop. ABDOMEN: Soft, without mass, tenderness or guarding. EXTREMITIES: No cyanosis, clubbing or edema. MUSCULOSKELETAL: He is up and ambulating, but is very anxious, stating he wants [facility] [address] [place] [address] CONSULTATION Name: MAGO FRANCES Room #: 519A-A ADM IN ..#: [id number] Admission: 12/22/20 Attend Phys: Coleman Ramirez DO Discharge: Date of : 47 Report #: [id number] to leave the unit. Apparently, the other patients seem to aggravate him. He still says he has no appetite. LABORATORY DATA: Hemoglobin A1c is 6.0 consistent with prediabetes. Cholesterol 123, triglycerides 53, LDL 46, HDL 67, recent hospitalization with a sodium of 133, potassium 3.6, CO2 of 28, BUN 22, creatinine 1.1, glucose 121. Liver enzymes normal. Calcium 9.2. Albumin normal. Troponin normal. Hemoglobin 14.6, white count 7800, platelets 244,000. IMPRESSION: 1. Acute psychotic break with depression and anxiety, possible posttraumatic stress disorder. 2. Hypertension. 3. Mixed hyperlipidemia. 4. History of prostate cancer. 5. Cervical degenerative arthritis. 6. History of gastroesophageal reflux disease without esophagitis. 7. Prediabetes RECOMMENDATIONS: Continue medical therapy as current, psych therapy managed by Dr. Ramirez, I have been in contact with his daily, who of course is very worried about the patient. Prognosis is guarded. <ELECTRONICALLY SIGNED> By: Abelardo Sparks DO 12/25/20 0719 0626 0649 Abelardo Sparks DO /nt
[2020-12-25 08:26] VITALS: BP 128/88
--- NOTE | 2020-12-25 10:38 | NUR ---
Alert and orientated X4. Denies SI/HI. Compliant with meds this AM, took whole with H2O. Breath sounds clear. Reg HR auscultated. Color pink with brisk capillary refill and palpable peripheral pulses. No edema noted. Active bowel sounds over soft, flat abdomen. Active bowel sounds over soft, flat abdomen. States last BM was 2 days ago. Declines laxative at this time stating he is not eating much. Ambulating with regular, steady gait. Attending groups. No s/o distress.
[2020-12-25 19:28] VITALS: BP 139/77
[2020-12-25 19:30] VITALS: BP 139/77
--- NOTE | 2020-12-25 22:58 | NUR ---
Assumed care on 12/25/20 @ 1900, A&Ox4 denies pain, pleasant affect noted. Denies SI/HI and hallucinations. Compliant with assessment, HRRR, Lungs CTA bilat, ABD n x 4Q. Ultimately took meds, but sat with the cup of meds for a bout 5 minutes before taking meds whole with water, stating I dont want to take too many medicines. Ambulates with a steady gait, low fall risk. Retired to bed @ HS. [facility] to [facility] for safety and comfort as per unit protocol.
[2020-12-26 08:28] VITALS: BP 135/85
--- NOTE | 2020-12-26 12:29 | NUR ---
PATIENT CARE ASSUMED AT 0700 - AFFECT MUCH BRIGHTER AND MOOD MORE POSITIVE. SMILING AND RESPONSIVE TO QUESTIONS - PATIENT ATE BREAKFAST AND LUNCH AND CONSUMED ENSURE ORDERED. MEDICATION COMPLIANT. STATED NOT SURE IF FEELING BETTER WHEN QUESTIONED. PARTICIPATED IN GROUP AND ENGAGING WITH PEERS.
[2020-12-26 19:27] VITALS: BP 145/77
[2020-12-26 19:33] VITALS: BP 145/77
--- NOTE | 2020-12-26 23:55 | NUR ---
Assumed care on 12/26/20 @ 1900, seated in the day room at a table. Calm and cooperative with care. called, and he spoke with her for just a few minutes. He said, she called me to tell me michelle. BM on 12/26, independent with toileting. Verified Quetiapine dosage of 112.5, and when gave his medications, he holds the pill cup for several minutes and has to be encouraged to take his medications. He stated that the medicine makes him feel weird inside. Retired to bed @ . Will continue to monitor for safety and comfort as per unit protocol.
[2020-12-27 08:57] VITALS: BP 120/77
--- NOTE | 2020-12-27 09:41 | NUR ---
Nutrition follow up: Pt noted with improved intake 75-100% at meals and 100% Ensure Enlive TID. Wt stable. On mirtazapine, B12, Vit D. Noted with recent increase in seroquel. Continues low nutrition risk with interventions in place.
--- NOTE | 2020-12-27 17:03 | NUR ---
Assumed pt care at 0700. pt was in his room awake. Assessments completed, vss. active bowel sound. Denies si/hi, denies pain at this time. Took meds whole, no difficulty noted. Ambulates with a steady gait. Meds administered as ordered. No sign of acute distress noted upon assessments. Calm and cooperative with care. NO REPORT OF BOWEL MOVEMENT THIS SHIFT. At this time pt is eating dinner. Will continue to monitor.
--- NOTE | 2020-12-27 17:52 | NUR ---
TABBY and Dr. Post participated in a family meeting with the Pt, Noreen (Pt's ), Kristina ( Pt's daughter in law) and Pt's son. The Pt's medications were discussed. The family was also informed of the recommendation for the Pt to attend a PHP after dicharge from the hospital. TABBY and Dr. Post provided education on PHP programs. The Pt was in agreement to attending a a PHP program. Family had no other questions or comments Discharge is set for 12/27/2020 @ 1030am Kristina will transport the Pt. Pt has an intake appointment at [facility] for the PHP program 12/29/2020 @ 1030am.
[2020-12-27 19:54] VITALS: BP 130/81
[2020-12-27 20:15] VITALS: BP 130/81
--- NOTE | 2020-12-28 02:26 | NUR ---
PATIENT SAT UP IN DINING ROOM THIS EVENING UNTIL BED TIME. HE IS A/O X 3 AND SHOWED SIGNS OF ANXIETY. HE KEPT ASKING IF HE WAS GOING HOME TOMORROW. HE STATES SOMETIMES PEOPLE TELL HIM YES AND OTHER TIMES THEY TELL HIM NO. I TOLD HIM THAT DR Rosado HAD NOTED THAT THE PLAN IS FOR HIM TO GO HOME TOMORROW AFTERNOON. HE THEN HAD TO SAY HE THOUGHT HE WAS GOING HOME IN THE MORNING. I REINTERATED THAT NOTED AFTERNOON. HE BECAME UNEASY WHEN ANOTHER PATIENT HAD TRIED TO STAND ON HIS OWN FROM AND WAS QUICKLY ALERTED TO SIT DOWN AND STAFF RUSHED TO HELP HIM. THE PATIENT CAME TO ME AND SAID HE DID NOT FEEL COMFORTABLE AND DID NOT KNOW WHAT THEY WERE GOING TO DO TO HIM. I EXPLAINED THAT THEY WERE JUST RUSHING TO HIM TO HELP MAKE SURE HE DID NOT FALL. TOLD HIM HE IS SAFE AND NO ONE WAS GOING TO HARM HIM. HE STAYED AWAY FROM OTHER PATIENT'S THE REST OF THE NIGHT AND LINGERED IN THE HALLWAYS BEFORE GOING TO BED. HE DENIES PAIN. DENIES SI/HI/AVH. HE TOOK HIS MEDS WHOLE WITH WATER. HE REFUSED HS SNACK INITIALLY BUT LATER DID HAVE SOME APPLE JUICE ON REQUEST. BED IN LOW POSITION AND LOCKED. ROUTINE ROUNDS TO ASSESS SAFETY AND STATUS OF PATIENT. CONTINUING TO MONITOR.
[2020-12-28 09:21] VITALS: BP 136/86
[2020-12-28] MEDS ORDERED: REMERON 30 MG T30 M1 PO (10:56)
[2020-12-28] MEDS ORDERED: SEROQUEL 100 M100 M1 PO (10:58)
[2020-12-28] MEDS ORDERED: SEROQUEL 25 MG25 M1 PO (10:59)
[2020-12-28] MEDS ORDERED: MIRALAX17 GM PO (11:00)
[2020-12-28] MEDS ORDERED: VITAMIN D3125 MC1 PO (11:00)
[2020-12-28 11:10] VITALS: BP 136/86
--- NOTE | 2020-12-28 12:06 | NUR ---
Assumed pt care at 0700. Pt was in his room resting. Assessments completed, vss. active bowel sound, S1 S2 regular.pt was alert and oriented x4. Denies SI/HI, denies pain. Took his meds whole, no difficulty noted. Ambulates with a steady gait. Meds administered as ordered. Calm and cooperative with care. 1200 pt was D/C with belonging, d/c instruction. pt went home with his . Staff accompanied pt to front entrance exit. D/c instruction was given to pt .
--- NOTE | 2020-12-28 12:08 | NUR ---
TABBY reviewed the chart and spoke with Dr. Post. Pt's discharge time was moved to 1130. Pt's Noreen arrived to pick the Pt up. SW informed Noreen and the Pt of the Pt's follow up appointments and also provided the SW discharge handout with the appointment information. TABBY faxed discharge information to Pt's PCP, Dr. Abelardo Sparks. Pt has an appointment with Dr. Sparks on 01/04/2021 @ 9000
--- NOTE | 2020-12-29 16:47 | D ---
[facility] [address] [place] [address] DISCHARGE SUMMARY Name: MAGO FRANCES Room #: 519A-A [facility] IN M.R.#: [id number] Admission: 12/22/20 Attend Phys: Coleman Ramirez DO Discharge: 12/28/20 Date of : 47 Report #: [id number] THIS REPORT FOR: cc: Abelardo Sparks Donald L. DO Kerstein, Andrew H. DO ~ DATE OF SERVICE: 12/28/2020 ATTENDING PSYCHIATRIST: Coleman Ramirez DO RESERVOIR ENGINEERING CONSULTANT: Abelardo Sparks DO DISCHARGE DIAGNOSES: Major depressive disorder, single episode, severe degree, with psychotic features, improved. Medical comorbidities include hypertension, prediabetes, prostate cancer, cervical degenerative arthritis, [place] exposure, history of prostate cancer. The patient will be discharging home where he lives with his , Noreen. Psychiatric aftercare will be in the PHP program at [facility] adjacent to [facility]. His intake is tomorrow, 12/29/2020. The patient is strongly encouraged to keep this intake and follow up with PHP pursuits. The patient has appointment with Dr. Sparks on 01/04/2021 at 1300. DISCHARGE DIET: Regular Ensure Enlive with meals. No alcohol, no smoking. No illicit drugs. Driving only with caution and another responsible adult in the car. DISCHARGE MEDICATIONS: As follows: Atorvastatin 20 mg oral at bedtime for hyperlipidemia; amlodipine 10 mg oral daily for hypertension; cyanocobalamin 1000 mcg oral daily for B12 supplementation; mirtazapine 15 mg oral at bedtime for depression, appetite, sleep; Seroquel 125 mg oral daily at 0900, 1500, 2100 for psychosis and augmentation of treatment of depression; MiraLax 17 g oral daily for bowel motility; vitamin D 5000 International Units oral daily for supplementation. The patient was given crisis hotline information and advised to contact doctor or return to the ED with suicidal or homicidal ideations, swelling, edema, shortness of breath, chest pain or fever greater than 100 degrees Fahrenheit. LABORATORY DATA: This admission, A1c 6.0, triglycerides 53, cholesterol 123, LDL 46, HDL 67. The patient was admitted briefly medically before this admission and refer reader to that discharge summary; however, vitamin D was borderline low at 32.9, B12 borderline at 471. [address] [address] DISCHARGE SUMMARY Name: MAGO FRANCES Room #: 519A-A [facility] IN ..#: [id number] Admission: 12/22/20 Attend Phys: Coleman Ramirez DO Discharge: 12/28/20 Date of : 47 Report #: [id number] REASON FOR ADMISSION: The patient was initially brought to the ER, I believe on 12/20. The patient has had failure to thrive, morbid thinking, increased depression. He reportedly had been admitted at [facility] recently for hypernatremia. HOSPITAL COURSE: The patient was admitted to Geriatric Psychiatry Unit from the medical unit. The patient was initially pretty quiet, hard to flush material, although he impressed me as having an agitated depression. I believe his SLUMS score was in the mid 20s. Discussed with him and his family that given the degree of depression, I did not think it was worth going on a fishing expedition for a neurodegenerative disorder. The patient's appetite improved. He had at least a pound of weight gain this admission. He showed some insight into the need for further treatment. Discussed partial hospitalization program with [facility] group therapy and medication management as a good step down. He was in agreement. On the day of discharge, the patient was not suicidal or homicidal. VITAL SIGNS: Temperature 36.2, pulse 87, respirations 17, BP 136/86, O2 sat 99%. MUSCULOSKELETAL: Normal gait and station, wearing street clothes and glasses. MENTAL STATUS EXAMINATION: This is a well-developed, thin male, BMI 20.2. Attention intact. Concentration intact. Speech soft, normal rate. Thought process: Linear and goal directed. Thought content, relative poverty of thought. Denied suicidal or homicidal ideation. No auditory, visual, or tactile hallucinations. Some helplessness, no hopelessness. Memory not formally tested. Insight limited. Judgment fair. Fund of knowledge average at this point. Prognosis for this patient is fair if he pursues treatment, though certainly much more guarded prognosis if the patient does not go through with [facility] and then the aftercare recommended from there. <ELECTRONICALLY SIGNED> By: Coleman Ramirez DO 12/29/20 [id number] Coleman Ramirez DO /nt
== END 2020-12-28 12:00 | disposition home or self-care (01) | DRG 885 ==
LOC: SBH
PROVIDERS: ADMIT Psychiatry & Neurology Psychiatry; ATTEND Psychiatry & Neurology Psychiatry
DX: F32.3 Major depressive disorder, single episode, severe with psychotic features (principal); F23 Brief psychotic disorder; I10 Essential (primary) hypertension; K21.9 Gastro-esophageal reflux disease without esophagitis; F41.9 Anxiety disorder, unspecified; M47.812 Spondylosis without myelopathy or radiculopathy, cervical region; R73.03 Prediabetes; E78.2 Mixed hyperlipidemia; F43.10 Post-traumatic stress disorder, unspecified; Z92.21 Personal history of antineoplastic chemotherapy; Z90.49 Acquired absence of other specified parts of digestive tract; Z79.899 Other long term (current) drug therapy; Z85.46 Personal history of malignant neoplasm of prostate
CPT/HCPCS: 10880